=== PATIENT | male | born 2000 | race Caucasian/White ===

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

== ENCOUNTER → 2018-03-09 | Outpatient (CLI) | payer OTHER | LOC: OD 13:23 | PROVIDERS: ATTEND Podiatrist Foot & Ankle Surgery | DX: Q72.819 Congenital shortening of unspecified lower limb (principal) ==

== ENCOUNTER → 2018-03-09 | Outpatient (CLI) | payer OTHER ==
--- NOTE | 2018-03-09 15:05 | RADIOLOGY REPORT (SQ) ---
EXAM DESCRIPTION: SCOLIOSIS SERIES COMPLETED DATE/TIME: 03/09/2018 1:53 pm REASON FOR STUDY: SCOLIOSIS CONCERN Z13.828 ENCOUNTER FOR SCREENING FOR OTHER MUSCULOSKELETAL DI COMPARISON: None. NUMBER OF VIEWS: One view. TECHNIQUE: Standing AP exam of the thoracolumbar spine with measurement of the RUBIO angles. LIMITATIONS: None. FINDINGS: 12 thoracic and 5 lumbar vertebral bodies are present. No hemivertebra or duplicated ribs. No developmental anomaly. From the top of T12 to the bottom of L2, there is 7 of convex leftward curvature. No secondary thor acic curvature. IMPRESSION: SCOLIOSIS WITH MEASUREMENTS ABOVE. TECHNICAL DOCUMENTATION: JOB ID: [id number] [employer]- All Rights Reserved Reading location - IP/workstation name: [email or web address]
== END ==
LOC: OD 13:27
PROVIDERS: ATTEND Nurse Practitioner Family
DX: Z13.828 Encounter for screening for other musculoskeletal disorder (principal)
CPT/HCPCS: 72082

== ENCOUNTER → 2020-03-28 | Outpatient (CLI) | payer OTHER | LOC: OD 13:02 | PROVIDERS: ATTEND Nurse Practitioner Primary Care | DX: Z20.2 Contact with and (suspected) exposure to infections with a predominantly sexual mode of transmission (principal) | CPT/HCPCS: 36415; 86701 ==